=== PATIENT | male | born 1950 | race Caucasian/White ===

== ENCOUNTER → 2021-11-14 | Outpatient (CLI) | payer MEDICARE ==
--- NOTE | 2021-11-14 15:40 | XR ---
EXAMINATION TYPE: XR KUB DATE OF EXAM: 11/14/2021 Comparison: None Clinical History: 71-year-old male possible kidney stones, N200 Findings: Degenerated dextroconvex scoliosis centered along the upper lumbar spine. Nonobstructive bowel gas pa ttern. Supine imaging limited for assessment of free air. Lung bases are clear. No suspicious calcification clearly identified. Impression: No suspicious calcification clearly identified. Dextroconvex scoliosis.
== END | disposition home or self-care (01) ==
LOC: RADXRMAIN 10:28
PROVIDERS: ATTEND Urology
DX: N20.0 Calculus of kidney (principal)
CPT/HCPCS: 74018

== ENCOUNTER → 2021-12-26 | Outpatient (CLI) | payer MEDICARE ==
--- NOTE | 2021-12-26 16:36 | CT ---
EXAMINATION TYPE: CT urogram wo/w con DATE OF EXAM: 12/26/2021 COMPARISON: None INDICATION: HEMATURIA AND INCREASE IN GOING PEE A LOT DLP: 4272 mGycm, Automated exposure control for dose reduction was used. CONTRAST: 80 mL of Isovue 300. Study performed without Oral Contrast TECHNIQUE: Axial images were obtained from above the diaphragm to the pubic rami in the axial plane a t 5 mm thick sections. Reconstructed images are reviewed on the computer in the coronal plane. FINDINGS: Limited CT sections are obtained the lung bases. The lung bases are clear. CT ABDOMEN: Liver: Normal Spleen: Normal Pancreas: There is some fatty atrophy of the pancreas Adrenal glands: The adrenal glands are normal. Gallbladder: Normal Kidneys: No masses are evident. No hydronephrosis is present. There is a 4.9 cm cyst on the lateral right kidney. No renal stones are evident. Aorta: Vascular calcification is within the aorta. Inferior vena cava: Normal. CT PELVIS: There is an anterior abdominal wall hernia in the periumbilical region with an opening of 1.6 cm. Loops of bowel within the abdomen and pelvis are normal. The study is without oral contrast limit ing bowel evaluation. Appendix: Normal as visualized. Urinary bladder: Normal. Genitourinary structures: The prostate appears unremarkable. Osseous structures: No suspicious lytic or sclerotic lesions. IMPRESSIONS: 1. No suspicious abnormality to account for hematuria or urgency. 2. Anterior abdominal wall hernia containing mesenteric fat. 3. Right renal cyst
== END | disposition home or self-care (01) ==
LOC: RADCTMAIN 14:00
PROVIDERS: ATTEND Urology
DX: N28.1 Cyst of kidney, acquired (principal); K46.9 Unspecified abdominal hernia without obstruction or gangrene; R31.1 Benign essential microscopic hematuria
CPT/HCPCS: 82565; 84520; 74178; 36415; 74400; Q9967